=== PATIENT | female | born 1975 | race Hispanic/Latino ===

== ENCOUNTER 2022-08-24 12:48 | Emergency (ER) | payer SELFPAY ==
[2022-08-24] MEDS ORDERED: Ketorolac Tromethamine 30 MG/ML VIAL ONE (13:27)
[2022-08-24] MEDS ORDERED: Diazepam 5 MG TAB ONE (13:29)
== END 2022-08-24 14:44 | disposition home or self-care (01) ==
LOC: CSHERS 12:48
DX: S93.402A Sprain of unspecified ligament of left ankle, initial encounter (principal); F17.210 Nicotine dependence, cigarettes, uncomplicated; W11.XXXA Fall on and from ladder, initial encounter; Y93.E9 Activity, other interior property and clothing maintenance
CPT/HCPCS: 29515; 72100; 96372; J1885

== ENCOUNTER 2023-02-23 17:13 | Emergency (ER) | payer SELFPAY ==
[2023-02-23] MEDS ORDERED: Lorazepam 2 MG/ML VIAL ONE (17:46)
[2023-02-23] MEDS ORDERED: fentaNYL 50 mcg/mL 1 mL Vial ONE (17:47)
[2023-02-23] MEDS ORDERED: Ketorolac Tromethamine 30 MG/ML VIAL ONE (17:47)
[2023-02-23] MEDS ORDERED: Dexamethasone 10 MG/ML VIAL ONE (17:47)
[2023-02-23 17:51] LABS: Bilirubin Neg (Negative); Blood, Urine 25 (Negative); Clarity Clear (Clear); Glucose, Urine (Dipstick) Normal (Negative); Ketone, Urine 5 mg/dL (Negative); Leukocyte 25 (Negative); Nitrite Negative (Negative); Protein, Urine (Dipstick) 30 mg/dl (Neg-Trace); Specific Gravity, Urine 1.025 (1.005-1.030); Urobilinogen Normal mg/dL (Less than 2)
[2023-02-23 17:53] LABS: Pregnancy Test - Urine (BHCG) Negative (Negative)
[2023-02-23 17:54] LABS: Pregu Control Background? CLEAR/WHITE (CLR/WHITE); Pregu Control Bar Appear? YES (CONTROL BAR); Specific Gravity 1.025 (1.002-1.036)
[2023-02-23] MEDS ORDERED: Ondansetron PF 4 MG/2 ML Vial ONE (18:05)
[2023-02-23 18:12] LABS: Bacteria/HPF None Seen HPF (None Seen); CAUTI Indications for Culture Pelvic or flank pain; RBC/HPF 0-3 HPF (0-3); Squamous Epithelial 0-3 HPF (0-3); WBC/HPF 0-3 HPF (0-3)
[2023-02-23 18:13] LABS: Urine Culture Reflex No No
== END 2023-02-23 19:18 | disposition home or self-care (01) ==
LOC: CSHERS 17:13
DX: M54.30 Sciatica, unspecified side (principal); M41.9 Scoliosis, unspecified; F17.210 Nicotine dependence, cigarettes, uncomplicated
CPT/HCPCS: 72100; 81001; 81025; 96374; 96375; J1100; J1885; J2060; J2405; J3010